=== PATIENT | female | born 2005 | race African-American/Black ===

== ENCOUNTER 2025-02-18 06:30 | Outpatient (REF) | payer OTHER, SELFPAY ==
--- NOTE | ~2025-02-18 | US_ITS ---
EXAMINATION: US PELVIS CLINICAL INFORMATION: Painful menstrual cramps COMPARISON: None available. TECHNIQUE: Ultrasound of the pelvis is performed using both transabdominal and transvaginal transducers along with Doppler. Transvaginal imaging is performed due to inadequate visualization transabdominally. FINDINGS: LMP: 2 weeks ago Uterus: The uterus is anteverted and anteflexed and measures 8.2 x 2.6 x 4 cm. . The double wall endometrial thickness is 2 mm. The uterus is smooth in contour and has normal myometrial echogenicity. No visible lesions. Adnexa: Right ovary measures 2.7 x 2 x 2 cm. Volume 5.5 mL Left ovary measures 2.6 x 1.9 x 1.6 cm. Volume 4.2 mL Bilateral ovaries appear unremarkable. No significant free fluid in the cul-de-sac. US/US pelvic and transvaginal IMPRESSION: No significant abnormality demonstrated by ultrasound. Electronically signed by: Beny Tony MD 02/18/2025 05:05 PM EDT
== END 2025-02-18 06:31 | disposition home or self-care (01) ==
LOC: HO.UMASIMG 06:30
PROVIDERS: Visit Provider Nurse Practitioner Women's Health
DX: N94.6 Dysmenorrhea, unspecified (principal)
CPT/HCPCS: 76830; 76856